=== PATIENT | female | born 1955 | race Caucasian/White ===

== ENCOUNTER 2018-04-14 14:02 | Emergency (ER) | payer OTHER, SELFPAY ==
[2018-04-14 14:07] VITALS: BP 109/67; PULSE 75; RESP 12; TEMP 36.7; O2SAT 97
--- NOTE | 2018-04-14 14:50 | ED.GENADUL ---
Disposition Clinical Impression: Rash, Atopic dermatitis Disposition: HOME Condition: Good Instructions: Acute Rash (ED) Additional Instructions: Please apply the steroid cream as directed. Please take the itching medicine as directed. If you notice that there is no improvement of your symptoms in the next 24 hours, please stop taking your terbinifine immediately. Please follow-up with her primary care provider in the next 48-72 hours. If you notice any worsening of your symptoms, or any new symptoms such as lesions in your mouth, lesions in your arms, legs or abdomen, vomiting, diarrhea, fever, chills, shortness of breath, chest pain, numbness, weakness, or fainting , please return immediately to the emergency department for reevaluation. Please follow up with your primary care provider as soon as possible for reassessment and reevaluation. As always, it was a pleasure participating in your medical care today. Prescriptions: Hydrocortisone 2.5% Cream [(None)] 30 gm TP BID #1 tube HydrOXYzine HCL [Atarax] 10 mg PO TID #30 tab Referrals: Mary Florez [Primary Care Provider] - Medical Decision Making - Medical Decision Making This is a pleasant 62-year-old female who presents with rash on the dorsum of her hands at the MCP joints bilaterally. Physical exam demonstrates signs and symptoms concerning for atopic dermatitis. No red flags or visual evidence of Ho-Ellis syndrome, bullous pemphigoid, pemphigus vulgaris, TEN, or staph scalded skin syndrome. No systemic infection component is noted with no fevers, chills and patient demonstrating normal vital signs. I feel the patient's symptoms are most likely secondary to atopic dermatitis, however the patient has been on terbinafine for a fungal infection in her toenails. This does not demonstrate the clinical signs and symptoms concerning for a systemic allergic reaction secondary to the medication however out of an abundance of precaution I have asked the patient to hold off on the to redefine if her symptoms do not improve with steroids in the next 24 hours. We discussed the importance of close follow-up with her PCP, as well as red flags which to return and the patient understands. I have extensively reviewed the treatment plan and discharge instructions with the patient. I have addressed all patient concerns at this time. The patient was made aware of what symptoms to monitor for that would warrant a return to the emergency department. Discussed the plan with the patient, they demonstrate verbal understanding and agreement with our assessment and plan at this time. 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 She presents today with complaint of rash on her hands bilaterally. She states that it started 3 days ago, it is pruritic in nature. She states that yesterday she felt itching in her hands feet never were all over her body, however today it is just primarily localized to her hands. She has been scratching at it vigorously. She did notice 2 small vesicles noted on the dorsal aspect of her right hand. She denies any bleeding, any other lesions anywhere else. There appears to be no relieving factors. She denies any history of rash like this in the past. She denies any recent contacts with outdoor plants, poison eris, or poison Parsnip. She denies any fever, chills, vomiting, diarrhea, oral lesions, difficulty swallowing, weakness, headache, vision changes, chest pain or shortness of breath. She denies a significant pertinent family history. She has no other complaints at this time. - Related Data Cyanocobalamin (Vitamin B-12) [Vitamin B-12] 1,000 mcg PO DAILY #100 tab-cap 09/18/13 Estradiol [Estrace] 1 gm VG 3x/week #42.5 gm 04/28/16 Fluocinonide 1 ml TP BID PRN #60 script 08/23/16 Triamcinolone Acetonide [TRIAMCINOLONE ACET 0.5%] 1 applic TP BID prn #60 gm 10/11/16 MetFORMIN [Glucophage] 1,000 mg PO BID #180 tab-cap 02/16/17 Amitriptyline [Elavil] 1 tab PO HS #90 tab 05/02/17 Levothyroxine [Levothroid] 150 mcg PO DAILY #30 tab-cap 05/18/17 Pen Needle, Diabetic [Pen Needle] 1 each MC weekly #25 ndl 05/18/17 Pen Needle, Diabetic [Pen Needle] 1 each MC DAILY #100 ndl 07/19/17 Meclizine [Antivert] 12.5 mg PO BID PRN #12 tab 08/10/17 Citalopram Hydrobromide [Celexa] 20 mg PO DAILY #90 tab-cap 08/28/17 Simvastatin 40 mg PO HS #90 tab-cap 08/28/17 Insulin Glargine,Hum.rec.anlog [Basaglar Kwikpen U-100] 25 unit SQ HS #10 pen 10/08/17 Exenatide Microspheres [Bydureon Pen] 2 mg SQ weekly #1 pen 12/11/17 Omeprazole 40 mg PO DAILY PRN #90 tab-cap 01/01/18 Gabapentin 300 - 600 mg PO BID #90 tab-cap 01/14/18 HydrOXYzine HCL [Atarax] 10 mg PO TID #30 tab 04/14/18 Hydrocortisone 2.5% Cream [(None)] 30 gm TP BID #1 tube 04/14/18 Allergies Allergy/AdvReac Type Severity Reaction Status Date / Time amoxicillin Allergy Intermediate Hives Unverified 04/14/18 14:20 bupropion Allergy Intermediate Skin Rash Unverified 04/14/18 14:20 ibuprofen Allergy Intermediate Skin Rash Unverified 04/14/18 14:20 hydrochlorothiazide AdvReac Mild DIZZY/DEHYD Unverified 04/14/18 14:20 [From Hyzaar] RATED lisinopril AdvReac Mild COUGH Unverified 04/14/18 14:20 losartan potassium AdvReac Mild DIZZY/DEHYD Unverified 04/14/18 14:20 [From Hyzaar] RATED sulfamethoxazole AdvReac Mild GI UPSE Unverified 04/14/18 14:20 [From Bactrim] trimethoprim [From Bactrim] AdvReac Mild GI UPSE Unverified 04/14/18 14:20 varenicline AdvReac Mild VOMITING Unverified 04/14/18 14:20 atorvastatin [From Lipitor] AdvReac Other (See Unverified 04/14/18 14:20 Comment) Review of Systems Other: 10 point review of systems was performed, pertinent positives and negatives are noted in the history of present illness. Past Medical History - Past Medical History Medical history: diabetes, hyperlipidemia, hypertension Chronic UTI, hypothyroidism, diabetic neuropathy, objective sleep apnea Surgical history: cholecystectomy, herniorraphy, other (Carpal tunnel release, oophorectomy, right kidney resection, cataract surgery) - Social History Alcohol use: none Drug use: none General Exam - Other Other exam information: 1.Const: Well-nourished, Well-developed, appearing stated age 2.Eyes: PERRL, no conjunctival injection, and symmetrical lids. 3.ENT: Atraumatic external nose and ears. Moist MM. Neck: Symmetric, trachea midline, No thyromegaly. No oral vesicles, lesions or ulcers in the mouth. 4.CVS: +S1/S2, No murmurs or gallops. Peripheral pulses 2+ and equal in all extremities. Brisk capillary refill in all extremities. 5.RESP: Unlabored respiratory effort. Clear to auscultation bilaterally. No wheezes rales or rhonchi 6.GI: Soft, Nontender/Nondistended, No hepatosplenomegaly. No guarding or rebound. 7.MSK: Normocephalic/Atraumatic, Extremities w/o deformity or ttp No cyanosis or clubbing, Normal movement of all extremities 8.Skin: Warm, Dry. Patient does demonstrate vitiligo over her hands legs shoulders back and chest. There is a very minimal amount of excoriations, over the dorsum of the patient's hands at the metacarpal phalangeal joints. 2 small clear vesicles are noted over this area on the right hand. Negative Nikolsky sign. No evidence of large bulla. Pressure on the vesicles does not lead to spreading or dehiscence of the vesicles. No signs of significant bullous pemphigoid, pemphigus vulgaris, shingles. No active drainage or bleeding. No evidence clinically suggestive of staph scalded skin syndrome, Ho-Ellis syndrome, or toxic epidermal necrolysis. 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 Sensation grossly intact, no focal neurologic deficits. 10.Psych: (AAO) x3. Appropriate mood and affect Course Vital Signs - 24 hr 04/14/18 14:07 Temperature 36.7 C Pulse 75 Respiratory 12 Rate Blood Pressure 109/67 Pulse Oximetry 97
--- NOTE | 2018-04-14 14:54 | ED.GENADUL_ITS ---
Disposition Clinical Impression: Rash, Atopic dermatitis Disposition: HOME Condition: Good Instructions: Acute Rash (ED) Additional Instructions: Please apply the steroid cream as directed. Please take the itching medicine as directed. If you notice that there is no improvement of your symptoms in the next 24 hours, please stop taking your terbinifine immediately. Please follow-up with her primary care provider in the next 48-72 hours. If you notice any worsening of your symptoms, or any new symptoms such as lesions in your mouth, lesions in your arms, legs or abdomen, vomiting, diarrhea, fever, chills, shortness of breath, chest pain, numbness, weakness, or fainting , please return immediately to the emergency department for reevaluation. Please follow up with your primary care provider as soon as possible for reassessment and reevaluation. As always, it was a pleasure participating in your medical care today. Prescriptions: Hydrocortisone 2.5% Cream [(None)] 30 gm TP BID #1 tube HydrOXYzine HCL [Atarax] 10 mg PO TID #30 tab Referrals: Mary Florez [Primary Care Provider] - Medical Decision Making - Medical Decision Making This is a pleasant 62-year-old female who presents with rash on the dorsum of her hands at the MCP joints bilaterally. Physical exam demonstrates signs and symptoms concerning for atopic dermatitis. No red flags or visual evidence of Ho-Ellis syndrome, bullous pemphigoid, pemphigus vulgaris, TEN, or staph scalded skin syndrome. No systemic infection component is noted with no fevers , chills and patient demonstrating normal vital signs. I feel the patient's symptoms are most likely secondary to atopic dermatitis, however the patient has been on terbinafine for a fungal infection in her toenails. This does not demonstrate the clinical signs and symptoms concerning for a systemic allergic reaction secondary to the medication however out of an abundance of precaution I have asked the patient to hold off on the to redefine if her symptoms do not improve with steroids in the next 24 hours. We discussed the importance of close follow-up with her PCP, as well as red flags which to return and the patient understands. I have extensively reviewed the treatment plan and discharge instructions with the patient. I have addressed all patient concerns at this time. The patient was made aware of what symptoms to monitor for that would warrant a return to the emergency department. Discussed the plan with the patient, they demonstrate verbal understanding and agreement with our assessment and plan at this time. 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 She presents today with complaint of rash on her hands bilaterally. She states that it started 3 days ago, it is pruritic in nature. She states that yesterday she felt itching in her hands feet never were all over her body, however today it is just primarily localized to her hands. She has been scratching at it vigorously. She did notice 2 small vesicles noted on the dorsal aspect of her right hand. She denies any bleeding, any other lesions anywhere else. There appears to be no relieving factors. She denies any history of rash like this in the past. She denies any recent contacts with outdoor plants, poison eris, or poison Parsnip. She denies any fever, chills, vomiting, diarrhea, oral lesions, difficulty swallowing, weakness, headache, vision changes, chest pain or shortness of breath. She denies a significant pertinent family history. She has no other complaints at this time. - Related Data Cyanocobalamin (Vitamin B-12) [Vitamin B-12] 1,000 mcg PO DAILY #100 tab-cap 05/24 Estradiol [Estrace] 1 gm VG 3x/week #42.5 gm 04/28/16 Fluocinonide 1 ml TP BID PRN #60 script 08/23/16 Triamcinolone Acetonide [TRIAMCINOLONE ACET 0.5%] 1 applic TP BID prn #60 gm 09/26 MetFORMIN [Glucophage] 1,000 mg PO BID #180 tab-cap 02/16/17 Amitriptyline [Elavil] 1 tab PO HS #90 tab 05/02/17 Levothyroxine [Levothroid] 150 mcg PO DAILY #30 tab-cap 05/18/17 Pen Needle, Diabetic [Pen Needle] 1 each MC weekly #25 ndl 05/18/17 Pen Needle, Diabetic [Pen Needle] 1 each MC DAILY #100 ndl 07/19/17 Meclizine [Antivert] 12.5 mg PO BID PRN #12 tab 08/10/17 Citalopram Hydrobromide [Celexa] 20 mg PO DAILY #90 tab-cap 08/28/17 Simvastatin 40 mg PO HS #90 tab-cap 08/28/17 Insulin Glargine,Hum.rec.anlog [Basaglar Kwikpen U-100] 25 unit SQ HS #10 pen Exenatide Microspheres [Bydureon Pen] 2 mg SQ weekly #1 pen 12/11/17 Omeprazole 40 mg PO DAILY PRN #90 tab-cap 01/01/18 Gabapentin 300 - 600 mg PO BID #90 tab-cap 01/14/18 HydrOXYzine HCL [Atarax] 10 mg PO TID #30 tab 04/14/18 Hydrocortisone 2.5% Cream [(None)] 30 gm TP BID #1 tube 04/14/18 Allergies Allergy/AdvReac Type Severity Reaction Status Date / Time amoxicillin Allergy Intermediate Hives Unverified 04/14/18 14:20 bupropion Allergy Intermediate Skin Rash Unverified 04/14/18 14:20 ibuprofen Allergy Intermediate Skin Rash Unverified 04/14/18 14:20 hydrochlorothiazide AdvReac Mild DIZZY/DEHYD Unverified 04/14/18 14:20 [From Hyzaar] RATED lisinopril AdvReac Mild COUGH Unverified 04/14/18 14:20 losartan potassium AdvReac Mild DIZZY/DEHYD Unverified 04/14/18 14:20 [From Hyzaar] RATED sulfamethoxazole AdvReac Mild GI UPSE Unverified 04/14/18 14:20 [From Bactrim] trimethoprim [From Bactrim] AdvReac Mild GI UPSE Unverified 04/14/18 14:20 varenicline AdvReac Mild VOMITING Unverified 04/14/18 14:20 atorvastatin [From Lipitor] AdvReac Other (See Unverified 04/14/18 14:20 Comment) Review of Systems Other: 10 point review of systems was performed, pertinent positives and negatives are noted in the history of present illness. Past Medical History - Past Medical History Medical history: diabetes, hyperlipidemia, hypertension Chronic UTI, hypothyroidism, diabetic neuropathy, objective sleep apnea Surgical history: cholecystectomy, herniorraphy, other (Carpal tunnel release, oophorectomy, right kidney resection, cataract surgery) - Social History Alcohol use: none Drug use: none General Exam - Other Other exam information: 1.Const: Well-nourished, Well-developed, appearing stated age 2.Eyes: PERRL, no conjunctival injection, and symmetrical lids. 3.ENT: Atraumatic external nose and ears. Moist MM. Neck: Symmetric, trachea midline, No thyromegaly. No oral vesicles, lesions or ulcers in the mouth. 4.CVS: +S1/S2, No murmurs or gallops. Peripheral pulses 2+ and equal in all extremities. Brisk capillary refill in all extremities. 5.RESP: Unlabored respiratory effort. Clear to auscultation bilaterally. No wheezes rales or rhonchi 6.GI: Soft, Nontender/Nondistended, No hepatosplenomegaly. No guarding or rebound. 7.MSK: Normocephalic/Atraumatic, Extremities w/o deformity or ttp No cyanosis or clubbing, Normal movement of all extremities 8.Skin: Warm, Dry. Patient does demonstrate vitiligo over her hands legs shoulders back and chest. There is a very minimal amount of excoriations, over the dorsum of the patient's hands at the metacarpal phalangeal joints. 2 small clear vesicles are noted over this area on the right hand. Negative Nikolsky sign. No evidence of large bulla. Pressure on the vesicles does not lead to spreading or dehiscence of the vesicles. No signs of significant bullous pemphigoid, pemphigus vulgaris, shingles. No active drainage or bleeding. No evidence clinically suggestive of staph scalded skin syndrome, Ho-Ellis syndrome, or toxic epidermal necrolysis. 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 Sensation grossly intact, no focal neurologic deficits. 10.Psych: (AAO) x3. Appropriate mood and affect Course Vital Signs - 24 hr 04/14/18 14:07 Temperature 36.7 C Pulse 75 Respiratory 12 Rate Blood Pressure 109/67 Pulse Oximetry 97
== END 2018-04-14 14:59 | disposition home or self-care (01) ==
PROVIDERS: Emergency Provider Student in an Organized Health Care Education/Training Program; PCP Family Medicine
DX: R21 Rash and other nonspecific skin eruption (principal); L20.9 Atopic dermatitis, unspecified; E11.9 Type 2 diabetes mellitus without complications; Z79.4 Long term (current) use of insulin; I10 Essential (primary) hypertension
CPT/HCPCS: 99283

== ENCOUNTER 2018-04-19 16:27 | Emergency (ER) | payer OTHER, SELFPAY ==
[2018-04-19 16:31] VITALS: BP 124/63; PULSE 76; RESP 20; TEMP 36.4; O2SAT 98
--- NOTE | 2018-04-19 16:38 | ED.GENADUL ---
Disposition Clinical Impression: Allergic reaction, Facial rash Disposition: HOME Condition: Improving Instructions: Acute Rash (ED), General Allergic Reaction (ED) Additional Instructions: Drink plenty of fluids and get plenty of rest. Take Benadryl as needed and directed for any itching. Stop taking the terbinafine. Take the steroids until finished. Follow-up with your primary care doctor within the next week. Return to the emergency department with any worsening or new concerning symptoms. Prescriptions: Prednisone 20 mg PO DIRECTED #12 tablet Medical Decision Making - Medical Decision Making 62-year-old female who presents with pruritic facial rash since 9:00 this morning. Was seen here earlier this week and diagnosed with atopic dermatitis of her hands which has completely resolved with hydroxyzine and hydrocortisone. It was discussed at that time that her symptoms in her hands might be due to her terbinafine which she is taking for a toenail infection. She was instructed to stop her terbinafine if her symptoms did not resolve after 3 days but she forgot to stop it as her symptoms improved. She admits to a funny feeling in her throat and shortness of breath, however she was able to ambulate back to the emergency department in no acute distress, she speaking in full sentences, and her airway is intact. No wheezing on lung exam and oxygen saturation within normal limits. Patient denies any new medications, travel or new exposures. The facial rash is mild with very minimal erythema and edema, mainly noted infraorbital bilaterally. Will place an IV, bolus IV fluids, Solu-Medrol, Pepcid and Benadryl. 1900 --patient observed for over 2 hours and feels much better. Facial rash much improved. She states she feels good would like to go home. She was able to drink here in the ED and swallow without difficulty. Denies any abnormal sensation in her throat or difficulty breathing. We will send him with a prescription for prednisone. Patient was instructed to stop her terbinafine. She states it was not helping much anyway. Instructed to drink plenty fluids and to return here with any worsening symptoms. History of Present Illness - General Chief complaint: Allergic Stated complaint: SOB/HIVES Time Seen by Provider: 04/19/18 16:29 Source: patient Mode of arrival: ambulatory Limitations: no limitations - History of Present Illness Initial comments: Patient is a 62-year-old female presents with facial rash since 9:00 this morning. Patient states the rash is itchy has gotten progressively worse the day has gone on. She was seen here last week for rash in her hands diagnosed with atopic dermatitis and prescribed hydroxyzine hydrocortisone and states her rash is completely resolved. She had been taking terbinafine fine at that time for a toenail fungal infection and was advised that if her rash did not improve over 3 days, to stop the terbinafine. She states she forgot to stop it. She does admit to a funny feeling in her throat and shortness of breath. - Related Data Cyanocobalamin (Vitamin B-12) [Vitamin B-12] 1,000 mcg PO DAILY #100 tab-cap 09/18/13 Estradiol [Estrace] 1 gm VG 3x/week #42.5 gm 04/28/16 Fluocinonide 1 ml TP BID PRN #60 script 08/23/16 Triamcinolone Acetonide [TRIAMCINOLONE ACET 0.5%] 1 applic TP BID prn #60 gm 10/11/16 MetFORMIN [Glucophage] 1,000 mg PO BID #180 tab-cap 02/16/17 Amitriptyline [Elavil] 1 tab PO HS #90 tab 05/02/17 Levothyroxine [Levothroid] 150 mcg PO DAILY #30 tab-cap 05/18/17 Pen Needle, Diabetic [Pen Needle] 1 each MC weekly #25 ndl 05/18/17 Pen Needle, Diabetic [Pen Needle] 1 each MC DAILY #100 ndl 07/19/17 Meclizine [Antivert] 12.5 mg PO BID PRN #12 tab 08/10/17 Citalopram Hydrobromide [Celexa] 20 mg PO DAILY #90 tab-cap 08/28/17 Simvastatin 40 mg PO HS #90 tab-cap 08/28/17 Insulin Glargine,Hum.rec.anlog [Basaglar Kwikpen U-100] 25 unit SQ HS #10 pen 10/08/17 Exenatide Microspheres [Bydureon Pen] 2 mg SQ weekly #1 pen 12/11/17 Omeprazole 40 mg PO DAILY PRN #90 tab-cap 01/01/18 Gabapentin 300 - 600 mg PO BID #90 tab-cap 01/14/18 HydrOXYzine HCL [Atarax] 10 mg PO TID #30 tab 04/14/18 Hydrocortisone 2.5% Cream 30 gm TP BID #1 tube 04/14/18 Prednisone 20 mg PO DIRECTED #12 tablet 04/19/18 Allergies Allergy/AdvReac Type Severity Reaction Status Date / Time amoxicillin Allergy Intermediate Hives Unverified 04/14/18 14:20 bupropion Allergy Intermediate Skin Rash Unverified 04/14/18 14:20 ibuprofen Allergy Intermediate Skin Rash Unverified 04/14/18 14:20 hydrochlorothiazide AdvReac Mild DIZZY/DEHYD Unverified 04/14/18 14:20 [From Hyzaar] RATED lisinopril AdvReac Mild COUGH Unverified 04/14/18 14:20 losartan potassium AdvReac Mild DIZZY/DEHYD Unverified 04/14/18 14:20 [From Hyzaar] RATED sulfamethoxazole AdvReac Mild GI UPSE Unverified 04/14/18 14:20 [From Bactrim] trimethoprim [From Bactrim] AdvReac Mild GI UPSE Unverified 04/14/18 14:20 varenicline AdvReac Mild VOMITING Unverified 04/14/18 14:20 atorvastatin [From Lipitor] AdvReac Other (See Unverified 04/14/18 14:20 Comment) Review of Systems Constitutional: denies: chills, fever Eyes: denies: eye pain ENT: denies: ear pain, dental pain Respiratory: denies: cough, shortness of breath Cardiovascular: denies: chest pain, dyspnea on exertion Gastrointestinal: denies: abdominal pain, nausea, vomiting Genitourinary: denies: urgency, dysuria, frequency Musculoskeletal: denies: back pain Skin: denies: rash, lesions Neurological: denies: headache, weakness, numbness Past Medical History - Past Medical History Medical history: diabetes, hyperlipidemia, hypertension Chronic UTI, hypothyroidism, diabetic neuropathy, objective sleep apnea Surgical history: cholecystectomy, herniorraphy, other (Carpal tunnel release, oophorectomy, right kidney resection, cataract surgery) - Social History Smoking status: never smoker Alcohol use: none Drug use: none General Exam - General Limitations: no limitations General appearance: alert, in no apparent distress - Eye Eye exam: Present: EOMI - ENT ENT exam: Present: normal orophraynx, mucous membranes moist, TM's normal bilaterally - Neck Neck exam: Present: normal inspection - Respiratory Respiratory exam: Present: normal lung sounds bilaterally. Absent: respiratory distress, wheezes, rales, rhonchi, stridor - Cardiovascular Cardiovascular Exam: Present: regular rate, normal rhythm. Absent: bradycardia, tachycardia - GI/Abdominal GI/Abdominal exam: Present: soft, normal bowel sounds. Absent: distended, tenderness, guarding, rebound, rigid - Neurological Exam Neurological exam: Present: alert, oriented X3 - Psychiatric Psychiatric exam: Present: normal affect - Skin Skin exam: Present: other (Very minimal facial erythema, edema noted to bilateral infraorbital region, and facial cheeks. No abscess, induration, fluctuance, abrasions or papules noted.) Course Vital Signs - 24 hr 04/19/18 16:31 Temperature 97.5 F L Pulse 76 Respiratory 20 Rate Blood Pressure 124/63 Pulse Oximetry 98
[2018-04-19] MEDS: diphenhydrAMINE 50 MG/ML VIAL IVP (16:45)
[2018-04-19] MEDS: methylPREDNISolone SUCC 125 MG VIAL IVP (16:46)
[2018-04-19] MEDS: FAMOTIDINE 20 MG/50 ML BAG 100 MG IVPB (16:47)
[2018-04-19] MEDS: Normal Saline 1,000 ML 1000 ML IV (17:03)
[2018-04-19 18:47] VITALS: PULSE 71; RESP 16; O2SAT 95
[2018-04-19 18:50] VITALS: PULSE 70; RESP 16; O2SAT 95
[2018-04-19 19:10] VITALS: BP 129/82; RESP 18; O2SAT 100
--- NOTE | 2018-04-19 19:59 | NUR.NOTE ---
Nursing Note: 1910: Pt has been able to eat and drink with ease feeling her throat is now clear. Skin pink/warm/dry.
== END 2018-04-19 19:27 | disposition home or self-care (01) ==
PROVIDERS: Emergency Provider Physician Assistant; PCP Family Medicine
DX: R21 Rash and other nonspecific skin eruption (principal); R06.02 Shortness of breath; R60.0 Localized edema; T36.7X5A Adverse effect of antifungal antibiotics, systemically used, initial encounter; E11.9 Type 2 diabetes mellitus without complications; Z79.4 Long term (current) use of insulin; I10 Essential (primary) hypertension
CPT/HCPCS: 96361; 96365; 96375; 99284; J1200; J2930

== ENCOUNTER 2018-06-04 12:02 | Outpatient (CLI) | payer OTHER, SELFPAY ==
[2018-06-04 16:41] LABS: Bilirubin Small (Negative); Blood Negative (Negative); Clarity Clear; Glucose Negative (Negative); Ketones 15 mg/dL (Negative); Leukocyte Esterase Negative (Negative); Nitrite Negative (Negative); Specific Gravity >= 1.030 (1.005-1.025); Urobilinogen 0.2 EU/dL (Up TO 0.2)
== END 2018-06-04 12:22 ==
PROVIDERS: PCP Family Medicine; Visit Provider Family Medicine
DX: R30.0 Dysuria (principal)
CPT/HCPCS: 81003

== ENCOUNTER 2018-06-10 09:00 | Day surgery (SDC) | payer OTHER, SELFPAY ==
--- NOTE | 2018-06-10 07:07 | W.COLOREPORT ---
Date of service: 06/10/18 Colonoscopy Report Date of procedure: 06/10/18 Pre-op diagnosis general: Hx of polyps Post-op diagnosis procedure note: other (Mild Diverticulosis) Procedure: Colonoscopy Surgeon: Letitia Marquez Anesthesia proc note operative: MAC (Shailesh Brizuela CRNA) Estimated blood loss (mL): 0 Pathology: none sent Complications: None Disposition: same day Indications: Mrs. Driver is here today for a colonoscopy. She has a history of polyps. Risks, benefits and complications have been reviewed with her and she wishes to proceed. No guarantees were given or implied. Prep: Miralax/Dulcolax Procedure Start Time: 10:41 Procedure End Time: 11:18 Retraction Time: 21 minutes Findings: Mild Sigmoid Diverticulosis Procedure Description: After informed consent was obtained the patient was taken to the procedure room and placed in a left decubitous position. Monitors were applied and a time out was done. The patients name, date of , procedure, allergies to medications and metal in their body was reviewed. The patient was then sedated. Once sedated and comfortable a rectal exam was done. External exam was normal. Internal exam revealed a normal sphincter tone and no palpable masses. The scope was then introduced and retrofelexed. No internal hemorrhoids were identified. The scope was then advanced to the cecum without difficulty. The TI and appendiceal orifice were identified. The prep was adequate. The scope was then slowly retracted over 21 minutes back into the rectum. No polyps were identified this time. There was mild diverticulosis of the sigmoid colon. The scope was removed and the patient was woken up and taken back to Same day surgery in stable condition. The patient tolerated the procedure well and there were no immediate complications. Follow up: The patient should follow up in 5 years due to her past history of polyps, unless they develop changes in bowel habits or other new gastrointestinal complaints.
--- NOTE | 2018-06-10 07:10 | PDOC.DSDIS_ITS ---
Discharge Plan Disposition Patient Disposition: HOME Condition: Good Discharge Details Reason For Visit: Colonoscopy Attending Provider: Letitia Marquez Primary Care Provider: Mary Florez Home Meds and New Rx's Prescriptions: Continue cyanocobalamin (vitamin B-12) [Vitamin B-12] 1,000 MCG tablet 1,000 mcg PO DAILY Qty: 100 RF: 4 estradiol [Estrace] 42.5 GM cream 1 gm VG 3x/week Qty: 42.5 RF: 2 fluocinonide 60 ML solution 1 ml Topical BID PRNQty: 60 RF: 2 triamcinolone acetonide 15 GM ointment 1 applic Topical BID prn Qty: 60 RF: 5 metformin [Glucophage] 1,000 MG tablet 1,000 mg PO BID Qty: 180 RF: 4 amitriptyline 10 MG tablet 1 tab PO HS Qty: 90 RF: 3 levothyroxine 150 MCG tablet 150 mcg PO DAILY Qty: 30 RF: 11 pen needle, diabetic 1 EACH needle 1 ea Miscellaneous weekly Qty: 25 RF: 2 pen needle, diabetic 1 EACH needle 1 ea Miscellaneous DAILY Qty: 100 RF: 5 simvastatin 40 MG tablet 40 mg PO HS Qty: 90 RF: 4 citalopram [Celexa] 20 MG tablet 20 mg PO DAILY Qty: 90 RF: 4 insulin glargine [Basaglar KwikPen U-100 Insulin] 100 UNIT/1 ML insulin pen 25 unit SQ HS Qty: 10 RF: 5 exenatide microspheres [Bydureon] 2 MG/0.65 ML pen injector 2 mg SQ weekly Qty: 1 RF: 11 omeprazole 40 MG capsule,delayed release(DR/EC) 40 mg PO DAILY PRNQty: 90 RF: 3 gabapentin 300 MG capsule 300 - 600 mg PO BID Qty: 90 RF: 5 meclizine [Antivert] 12.5 MG tablet 12.5 mg PO BID PRN (Reason: Dizziness) Qty: 12 RF: 0 hydrocortisone 30 GM cream 30 gm Topical BID Qty: 1 RF: 0 Discharge Instructions Instructions: Colonoscopy (DC), Diverticulosis (DC) Additional Instructions: Findings: Mild Diverticulosis of the sigmoid colon Follow up: 5 years for next colonoscopy New medications: none Please call if you develop: fevers >101.5 Nausea or Vomiting Abdominal pain that is not transient 1. Because there will be medication in your system for the next 24 hours, you may feel a little sleepy. Your coordination will be affected. Therefore: a. Do not drive or operate dangerous equipment for 24 hours. b. Do not drink alcohol beverages for 24 hours (not even beer). c. Plan to go home and rest for the day. 2. Generally there are no restrictions on your activity after a day or so has gone by, but you may feel a bit fatigued for a few days. 3 After you arrive home you may have a light meal and return to a normal diet as you can tolerate it without feeling sick to your stomach. 4. After surgery, you may feel pain or discomfort. This should be only transient , but if it persists please contact your doctor. 5. If there are any questions regarding the findings of your procedure, please feel free to contact your doctor. 6. If you are unable to contact your doctor with a problem, contact the hospital at [phone]. 7. Continue all your regular medications unless directed otherwise. I understand the above instructions and have no questions. Signature of Patient or Responsible Adult Escort Date/Time Name of Responsible Adult Escort Signature of Nurse Date/Time Activity:: Activity as Tolerated Diet:: High Fiber diet Discharge Orders Discharge Orders: Discharge Order (Routine); Ordered 06/10/18 Ordered By: Letitia Marquez
[2018-06-10 09:13] VITALS: BP 124/65; PULSE 88; RESP 16; TEMP 35.5; O2SAT 97
[2018-06-10] MEDS: Lactated Ringers 1,000 ML 80 ML IV (10:06)
[2018-06-10 11:49] VITALS: BP 113/61; PULSE 66; RESP 18; TEMP 36.3; O2SAT 95
== END 2018-06-10 12:20 | disposition home or self-care (01) ==
LOC: SUR 09:01
PROVIDERS: PCP Family Medicine; Visit Provider Surgery
PROC: 0DJD8ZZ Inspection of Lower Intestinal Tract, Via Natural or Artificial Opening Endoscopic (ICD-10-PCS; CPT 45378; principal; 2018-06-10 10:45)
DX: Z12.11 Encounter for screening for malignant neoplasm of colon (principal); Z86.010 Personal history of colon polyps; K57.30 Diverticulosis of large intestine without perforation or abscess without bleeding; J44.9 Chronic obstructive pulmonary disease, unspecified; I10 Essential (primary) hypertension
CPT/HCPCS: 45378

== ENCOUNTER 2018-06-12 13:39 | Outpatient (CLI) | payer OTHER, SELFPAY ==
--- NOTE | 2018-06-12 13:36 | DI.RAD_ITS ---
SYMPTOMS/DIAGNOSIS: KNEE PAIN LEFT KNEE: Three views. Comparison 08/27/15. The bones appear osteopenic. Periarticular spurring is seen involving all three joint compartments. There is marked narrowing of the patellofemoral joint with flattening of the articular surfaces and subchondral sclerosis. No acute fracture or dislocation is seen. There is a small suprapatellar joint effusion. Arterial calcifications are present. IMPRESSION: Moderate osteoarthritis of the knee particularly the patellofemoral joint.
== END 2018-06-12 13:59 ==
PROVIDERS: PCP Family Medicine; Visit Provider Student in an Organized Health Care Education/Training Program
DX: M25.562 Pain in left knee (principal); M85.88 Other specified disorders of bone density and structure, other site; M17.12 Unilateral primary osteoarthritis, left knee
CPT/HCPCS: 73562

== ENCOUNTER 2018-06-12 15:52 | Outpatient (REF) | payer OTHER, SELFPAY ==
[2018-06-12 18:31] LABS: Mononuclear Cells 78 % (0-0); Other Cells 0 0 (0-0)
[2018-06-12 18:36] LABS: Polynuclear Cells 22 % (0-0)
== END 2018-06-12 16:12 ==
LOC: LBN 15:52
PROVIDERS: PCP Family Medicine; Visit Provider Student in an Organized Health Care Education/Training Program
DX: M25.462 Effusion, left knee (principal)
CPT/HCPCS: 87077; 89051; 87070; 87205; 89060

== ENCOUNTER 2018-06-26 02:15 | Outpatient (CLI) | payer OTHER, SELFPAY ==
[2018-06-26 16:22] LABS: HCT 33.9 % (36.0-46.0); HGB 11.4 g/dL (12.0-15.5); Mean Corp. HGB Concentration 33.6 g/dL (32.0-36.0); Mean Corpuscular Hemoglobin 30.2 pg (27.0-33.0); Mean Corpuscular Volume 89.7 fL (80-95); Mean Platelet Volume 9.4 fL (8.0-11.0); Platelet Count 237 x1000/uL (130-400); RBC 3.78 m/cumm (4.00-5.20); RBC Distribution Width 13.6 % (11.7-14.6); White Blood Cell Count 10.88 k/cumm (4.4-10.8)
[2018-06-26 17:35] LABS: C-Reactive Protein 0.37 mg/dL (0.0-0.3)
== END 2018-06-26 02:35 ==
PROVIDERS: Student in an Organized Health Care Education/Training Program; PCP Family Medicine; Visit Provider Family Medicine
DX: M25.562 Pain in left knee (principal)
CPT/HCPCS: 36415; 85027; 86140

== ENCOUNTER 2018-07-01 11:47 | Outpatient (REF) | payer OTHER, SELFPAY ==
[2018-07-01 14:15] LABS: Source L KNEE
[2018-07-01 14:16] LABS: Clarity CLOUDY
[2018-07-12 11:21] LABS: Nucleated Cells 1344 /MM3 (0-0)
[2018-07-12 11:22] LABS: Polynuclear Cells 54 % (0-0)
[2018-07-12 11:23] LABS: Mononuclear Cells 46 % (0-0)
== END 2018-07-01 12:07 ==
LOC: LBN 11:47
PROVIDERS: PCP Family Medicine; Visit Provider Student in an Organized Health Care Education/Training Program
DX: M25.462 Effusion, left knee (principal)
CPT/HCPCS: 87070; 87205; 89051

== ENCOUNTER 2018-07-15 00:48 | Outpatient (CLI) | payer OTHER, SELFPAY ==
--- NOTE | 2018-07-15 09:36 | DI.MRI_ITS ---
SYMPTOM/DIAGNOSIS: RECURRENT EFFUSION AND PAIN LEFT KNEE MRI: Routine noncontrast examination was performed. The anterior cruciate and posterior cruciate ligaments are intact as are the medial and lateral collateral ligaments, extensor mechanism and medial and lateral retinaculum in addition to the popliteus tendon. There is no evidence of a meniscal tear. At the patellofemoral joint, there is loss of the articular cartilage. There is joint space narrowing and subchondral edema present. Osteophytes are seen in the posterior patella. In the femoral tibial joints, there is mild narrowing of the articular cartilage in the medial aspect. Osteophytes are seen arising from both the medial and lateral joint space. There is a moderate sized joint effusion. No evidence of a popliteal cyst is seen. The muscles show normal signal and size. No abnormal focal fluid collection is appreciated. There is T 2 hyperintense signal seen in the posterior proximal metaphyseal region of the tibia. This finding is nonspecific. There does not appear to be disruption of the cortex or an associated soft tissue mass. There is also mild edema seen in the subchondral region of the patellofemoral joint which may be degenerative in nature. IMPRESSION: 1. No evidence of a meniscal or ligament tear. 2. Marked degenerative changes seen in the knee, particularly involving the patellofemoral joint. 3. Nonspecific abnormal signal seen in the proximal tibial metaphysis. The finding is nonspecific but appears benign. No associated soft tissue mass or cortical disruption is seen.
== END 2018-07-15 01:08 ==
PROVIDERS: PCP Family Medicine; Visit Provider Student in an Organized Health Care Education/Training Program
DX: M25.562 Pain in left knee (principal); M25.462 Effusion, left knee; M17.12 Unilateral primary osteoarthritis, left knee
CPT/HCPCS: 73721

== ENCOUNTER 2018-09-24 11:32 | Outpatient (CLI) | payer OTHER, SELFPAY ==
[2018-09-24 17:08] LABS: Cholesterol 264 mg/dL (50-200); HDL Cholesterol 47 mg/dL (40-60); LDL CHOLESTEROL 178 mg/dL (<100); Triglyceride 239 mg/dL (30-150)
[2018-09-24 18:31] LABS: TSH 7.87 uIU/mL (0.358-3.74)
== END 2018-09-24 11:52 ==
LOC: LBO 11:34 → NCHCO 11:36
PROVIDERS: PCP Family Medicine; Visit Provider Family Medicine
DX: E78.5 Hyperlipidemia, unspecified (principal); E03.9 Hypothyroidism, unspecified; R30.0 Dysuria
CPT/HCPCS: 36415; 80061; 83721; 81003; 84443

== ENCOUNTER 2018-10-25 09:38 | Emergency (ER) | payer OTHER, SELFPAY ==
[2018-10-25 09:40] VITALS: BP 141/66; PULSE 91; RESP 18; TEMP 36.3; O2SAT 100
[2018-10-25 10:01] LABS: Bilirubin Moderate (Negative); Blood Negative (Negative); Glucose Negative (Negative); Ketones 15 mg/dL (Negative); Leukocyte Esterase Moderate (Negative); Nitrite Positive (Negative); Specific Gravity >= 1.030 (1.005-1.025); pH 5.5 (5-8)
[2018-10-25 10:02] LABS: Clarity Cloudy
[2018-10-25] MEDS: Lidocaine 5% Patch 1 PATCH TP (10:05)
--- NOTE | 2018-10-25 10:09 | ED.GENADUL_ITS ---
Discharge Plan Disposition Patient Disposition: HOME Condition: Good Discharge Details Chief Complaint: Urinary Clinical Impression: UTI (urinary tract infection) Primary Care Provider: Mary Florez ED Provider: Vivek Cuevas Home Meds and New Rx's Prescriptions: New cephalexin [Keflex] 500 mg capsule 500 mg PO QID 7 Days Qty: 28 RF: 0 No Action cyanocobalamin (vitamin B-12) [Vitamin B-12] 1,000 MCG tablet 1,000 mcg PO DAILY Qty: 100 RF: 4 estradiol [Estrace] 42.5 GM cream 1 gm VG 3x/week Qty: 42.5 RF: 2 fluocinonide 60 ML solution 1 ml Topical BID PRNQty: 60 RF: 2 triamcinolone acetonide 15 GM ointment 1 applic Topical BID prn Qty: 60 RF: 5 metformin [Glucophage] 1,000 MG tablet 1,000 mg PO BID Qty: 180 RF: 4 amitriptyline 10 MG tablet 1 tab PO HS Qty: 90 RF: 3 levothyroxine 150 MCG tablet 150 mcg PO DAILY Qty: 30 RF: 11 pen needle, diabetic 1 EACH needle 1 ea Miscellaneous weekly Qty: 25 RF: 2 pen needle, diabetic 1 EACH needle 1 ea Miscellaneous DAILY Qty: 100 RF: 5 simvastatin 40 MG tablet 40 mg PO HS Qty: 90 RF: 4 citalopram [Celexa] 20 MG tablet 20 mg PO DAILY Qty: 90 RF: 4 insulin glargine [Basaglar KwikPen U-100 Insulin] 100 UNIT/1 ML insulin pen 25 unit SQ HS Qty: 10 RF: 5 exenatide microspheres [Bydureon] 2 MG/0.65 ML pen injector 2 mg SQ weekly Qty: 1 RF: 11 omeprazole 40 MG capsule,delayed release(DR/EC) 40 mg PO DAILY PRNQty: 90 RF: 3 gabapentin 300 MG capsule 300 - 600 mg PO BID Qty: 90 RF: 5 meclizine [Antivert] 12.5 MG tablet 12.5 mg PO BID PRN (Reason: Dizziness) Qty: 12 RF: 0 hydrocortisone 30 GM cream 30 gm Topical BID Qty: 1 RF: 0 Discharge Instructions Instructions: Urinary Tract Infection in Women (ED) Additional Instructions: Please take medication as directed. If you notice any hives, or allergic reaction please stop taking it immediately, take 25 mg of Benadryl and return immediately to the emergency department. If you notice any worsening of your symptoms, or any new symptoms such as vomiting, diarrhea, fever, chills, shortness of breath, chest pain, numbness, weakness, or fainting , please return immediately to the emergency department for reevaluation. Please follow up with your primary care provider as soon as possible for reassessment and reevaluation. As always, it was a pleasure participating in your medical care today. Referrals: Mary Florez [Primary Care Provider] - Medical Decision Making This is a very pleasant 62-year-old female who presents for evaluation of mild lower back pain, worse on the left than the right, with mild urinary incontinence. She denies any hematuria, or other red flags of fever, fall, trauma, saddle anesthesia, numbness tingling or weakness. There is no abdominal tenderness, vital signs are stable and reassuring. Urinalysis is nitrate positive, with present leuk esterase. Signs and symptoms are clinically consistent with urinary tract infection. They are inconsistent with pyelonephritis with no fever, chills, CVA tenderness, tachycardia, or other abnormalities. The patient's most recent culture was from 2014 which showed pansensitive E. coli. Patient has multiple allergies, including an intolerance to Bactrim, and history of very mild hives to amoxicillin. However because of her single kidney, and her age I do not feel that she would be a good or appropriate candidate for floor quinolone or nitrofurantoin with concern for low creatinine levels. I did discuss the risk and benefits of doing a trial of Keflex, and through shared decision making process after weighing the risks and benefits we will give a prescription for Keflex. However will give the first dose here and observe the patient for 30 minutes to make sure there is no adverse reaction. I feel that the literature clearly defines that the likelihood of a severe reaction or interaction is extremely low in the setting of an already mild penicillin allergy. Regardless I do feel that an observation period is prudent. 11 AM A prolonged observation. Was made, and after this the patient was reassessed, she had no reaction, no adverse complaint, no signs of anaphylaxis or hives. I feel that the patient be safely discharged home. The patient is asking to go home. She will be discharged home with close follow-up. We discussed red flags which to return the patient understands. I have extensively reviewed the treatment plan and discharge instructions with the patient. I have addressed all patient concerns at this time. The patient was made aware of what symptoms to monitor for that would warrant a return to the emergency department. Discussed the plan with the patient, they demonstrate verbal understanding and agreement with our assessment and plan at this time. HPI General Date/Time Provider Initiated Documentation: 10/25/18 09:46 . HPI Narrative: This is a 62-year-old female with a past medical history of diabetes, left nephrectomy, struct of sleep apnea, chronic left-sided low back pain, COPD, who presents today for evaluation of mild bilateral low back pain, slightly worse on the left than the right, which is been present for the last 3 weeks. She describes it as mild achy sensation. She denies any sciatic-like symptoms, any numbness or tingling in her groin or lower extremities. She denies any weakness of her lower extremities. She does admit to increased urinary incontinence but denies any hematuria, dysuria, fever, chills, nausea, vomiting, diarrhea, hematochezia, melena, acholic stool. She states that the symptoms f eel slightly atypical than her normal UTIs is normally she will have blood in her urine. She denies any red flags of recent trauma, recent falls, chest pain or shortness of breath. Of note the patient does state that she was chronically on an antibiotic for her mild urinary incontinence as prescribed by Dr. Walker, however she stopped this 6 months ago she is not seen Dr. Walker for quite some time and her PCP did not want to continue the medication/antibiotic for the time being. Patient does not recall what the antibiotic was. Patient has no other complaints at this time. The patient has taken Aleve and has used a heating pad and has had no significant improvement of her symptomatology. Related Data Home Medications Medication Instructions Recorded Confirmed cyanocobalamin (vitamin B-12) 1,000 mcg PO DAILY #100 tab-cap 09/18/13 07/01/18 [Vitamin B-12] estradiol [Estrace] 1 gm VG 3x/week #42.5 gm 04/28/16 07/01/18 fluocinonide 1 ml TOPICAL BID PRN #60 script 08/23/16 07/01/18 triamcinolone acetonide 1 applic TOPICAL BID prn #60 gm 10/11/16 07/01/18 metformin [Glucophage] 1,000 mg PO BID #180 tab-cap 02/16/17 07/01/18 amitriptyline 1 tab PO HS #90 tab 05/02/17 07/01/18 levothyroxine 150 mcg PO DAILY #30 tab-cap 05/18/17 07/01/18 pen needle, diabetic #25 ndl 05/18/17 07/01/18 pen needle, diabetic #100 ndl 07/19/17 07/01/18 meclizine [Antivert] 12.5 mg PO BID PRN #12 tab 08/10/17 07/01/18 citalopram [Celexa] 20 mg PO DAILY #90 tab-cap 08/28/17 07/01/18 simvastatin 40 mg PO HS #90 tab-cap 08/28/17 07/01/18 insulin glargine [Basaglar KwikPen 25 unit SQ HS #10 pen 10/08/17 07/01/18 U-100 Insulin] exenatide microspheres [Bydureon] 2 mg SQ weekly #1 pen 12/11/17 07/01/18 omeprazole 40 mg PO DAILY PRN #90 tab-cap 01/01/18 07/01/18 gabapentin 300 - 600 mg PO BID #90 tab-cap 01/14/18 07/01/18 hydrocortisone 30 gm TOPICAL BID #1 tube 04/14/18 07/01/18 cephalexin [Keflex] 500 mg PO QID 7 Days #28 cap 10/25/18 Previous Rx's Medication Instructions Recorded pen needle, diabetic #100 ndl 07/19/17 meclizine [Antivert] 12.5 mg PO BID PRN #12 tab 08/10/17 citalopram [Celexa] 20 mg PO DAILY #90 tab-cap 08/28/17 simvastatin 40 mg PO HS #90 tab-cap 08/28/17 insulin glargine [Basaglar KwikPen 25 unit SQ HS #10 pen 10/08/17 U-100 Insulin] exenatide microspheres [Bydureon] 2 mg SQ weekly #1 pen 12/11/17 gabapentin 300 - 600 mg PO BID #90 tab-cap 01/14/18 hydrocortisone 30 gm TOPICAL BID #1 tube 04/14/18 cephalexin [Keflex] 500 mg PO QID 7 Days #28 cap 10/25/18 Allergies Allergy/AdvReac Type Severity Reaction Status Date / Time amoxicillin Allergy Intermediate Hives Verified 10/25/18 09:45 bupropion Allergy Intermediate Skin Rash Verified 10/25/18 09:45 ibuprofen Allergy Intermediate Skin Rash Verified 10/25/18 09:45 hydrochlorothiazide AdvReac Mild DIZZY/DEHYD Verified 10/25/18 09:45 [From Hyzaar] RATED lisinopril AdvReac Mild COUGH Verified 10/25/18 09:45 losartan potassium AdvReac Mild DIZZY/DEHYD Verified 10/25/18 09:45 [From Hyzaar] RATED sulfamethoxazole AdvReac Mild GI UPSE Verified 10/25/18 09:45 [From Bactrim] trimethoprim [From Bactrim] AdvReac Mild GI UPSE Verified 10/25/18 09:45 varenicline AdvReac Mild VOMITING Verified 10/25/18 09:45 atorvastatin [From Lipitor] AdvReac Other (See Verified 10/25/18 09:45 Comment) General Stated Complaint: Urinary KARLO: 4 Review of Systems Review of Systems All systems reviewed & are unremarkable except as noted in HPI and below PFSH Medical History COPD (chronic obstructive pulmonary disease) Diabetes Hypertension Obesity Varicose veins of both legs with edema Surgical History Biopsy of breast (~2003) Cholecystectomy (~2005) EGD - MAC (~2005) Extraction of cataract HERNIA REPAIR (~2006) Nephrectomy (~2005) Family History Mother Alcohol abuse Father Diabetes Sister Diabetes Brother Diabetes Brother Heart disease Son No problems noted. Daughter No problems noted. Social History Smoking and Tabacco status: Current-Occasional Exam Narrative Exam Narrative: 1.Const: Well-nourished, Well-developed, appearing stated age 2.Eyes: PERRL, no conjunctival injection, and symmetrical lids. 3.ENT: Atraumatic external nose and ears. Moist MM. Neck: Symmetric, trachea midline, No thyromegaly. 4.CVS: +S1/S2, No murmurs or gallops. Peripheral pulses 2+ and equal in all extremities. Brisk capillary refill in all extremities. 5.RESP: Unlabored respiratory effort. Clear to auscultation bilaterally. No wheezes rales or rhonchi 6.GI: Soft, Nontender/Nondistended, No hepatosplenomegaly. No guarding or rebound. No pain at McBurney's point, negative Fowler sign, negative obturator and psoas sign. No significant CVA tenderness on percussion. 7.MSK: Normocephalic/Atraumatic, Extremities w/o deformity or ttp No cyanosis or clubbing, Normal movement of all extremities. Normal movement of the hip, with external and internal rotation. Normal flexion and extension. There is mild tenderness on palpation of the left SI joint. No midline spinal tenderness. No midline tenderness to palpation over the CTLS spine. Normal ROM in flexion, extension, side bend, and rotation. Patient has +5 out of 5 strength in the lower extremities in dorsiflexion and plantarflexion, knee flexion and extension, hip flexion and extension. There is +2 over 2 dorsalis pedis pulses bilaterally. There is normal sensation to the skin with light touch at the foot, knee, and hip. Normal saddle sensation. Good sensation over the deep sural nerve area bilaterally. Rectal exam deferred. Reflexes are +2 over 4 in the patellar reflex bilaterally. +5 out of 5 strength in the medial, ulnar, radial nerve distribution bilaterally in the hands as well as intact light touch sensation to these dermatomes on the hands. Patient ambulates well without any difficulty or limp. 8.Skin: Warm, Dry. No rashes or lesions. 9.Neuro: juice tester II-XII grossly intact. Sensation grossly intact, no focal neurologic deficits. 10.Psych: (AAO) x3. Appropriate mood and affect Course Vital Signs Temperature 36.3 C L 10/25/18 09:40 Pulse 91 H 10/25/18 09:40 Respiratory Rate 18 10/25/18 09:40 Blood Pressure 141/66 H 10/25/18 09:40 Pulse Oximetry 100 10/25/18 09:40 Temperature 36.3 C L 10/25/18 09:40 Temperature Source Skin 10/25/18 09:40 Pulse 91 H 10/25/18 09:40 Respiratory Rate 18 10/25/18 09:40 Respiratory Effort 10/25/18 09:55 Blood Pressure 141/66 H 10/25/18 09:40 Blood Pressure Position Sitting 10/25/18 09:40 Pulse Oximetry 100 10/25/18 09:40 Oxygen Delivery Method Room Air 10/25/18 09:40 Oxygen Flow Rate 0 10/25/18 09:40 Pain Level 8 10/25/18 09:49 Lab/Test Results Lab/Test Results: Laboratory Tests Range/Units 10/25/18 09:50 Urine Color (Yellow) Yellow Urine Clarity Cloudy Urine pH (5-8) 5.5 Ur Specific Williams (1.005-1.025) >= 1.030 H Urine Protein (Negative) mg/dL 30 H Urine Ketones (Negative) mg/dL 15 H Urine Blood (Negative) Negative Urine Nitrite (Negative) Positive H Urine Bilirubin (Negative) Moderate H Urine Urobilinogen (Up TO 0.2) EU/dL 1.0 H Ur Leukocyte Esterase (Negative) Moderate H Urine Glucose (Negative) mg/dL Negative
[2018-10-25 10:11] LABS: WBC >50 HPF (0-5)
[2018-10-25 10:12] LABS: Bacteria Many HPF (Negative); C & S Indicated? No/Sq. Contamination; Epithelial Cells Many HPF (Negative)
[2018-10-25] MEDS: Cephalexin 500 MG CAP PO (10:21)
[2018-10-25 10:56] VITALS: BP 116/70; PULSE 77; RESP 14; TEMP 36.8; O2SAT 98
== END 2018-10-25 10:55 | disposition home or self-care (01) ==
LOC: ER 10:18
PROVIDERS: Emergency Provider Student in an Organized Health Care Education/Training Program; PCP Family Medicine
DX: N39.0 Urinary tract infection, site not specified (principal); J44.9 Chronic obstructive pulmonary disease, unspecified; E11.9 Type 2 diabetes mellitus without complications; Z90.5 Acquired absence of kidney; I10 Essential (primary) hypertension
CPT/HCPCS: 99283; 81003; 81015

== ENCOUNTER 2018-10-29 08:12 | Outpatient (CLI) | payer OTHER, SELFPAY ==
[2018-10-29 13:31] LABS: Cholesterol 130 mg/dL (50-200); HDL Cholesterol 47 mg/dL (40-60); LDL CHOLESTEROL 58 mg/dL (<100); TSH (W/Ref FT4) 0.27 uIU/mL (0.358-3.74); Triglyceride 118 mg/dL (30-150)
[2018-10-29 14:01] LABS: FREE T4 1.52 ng/dL (0.76-1.46)
== END 2018-10-29 08:32 ==
PROVIDERS: PCP Family Medicine; Visit Provider Family Medicine
DX: E03.9 Hypothyroidism, unspecified (principal); E78.5 Hyperlipidemia, unspecified
CPT/HCPCS: 36415; 80061; 83721; 84439; 84443

== ENCOUNTER 2019-01-21 15:45 | Outpatient (CLI) | payer OTHER, SELFPAY ==
[2019-01-21 16:10] LABS: Bilirubin Small (Negative); Blood Negative (Negative); Clarity Clear; Glucose Negative (Negative); Ketones Trace mg/dL (Negative); Leukocyte Esterase Trace (Negative); Nitrite Negative (Negative); Specific Gravity 1.025 (1.005-1.025); Urobilinogen 0.2 EU/dL (Up TO 0.2); pH 5.5 (5-8)
[2019-01-21 16:20] LABS: Bacteria Many HPF (Negative); C & S Indicated? No/Sq. Contamination; Casts Negative LPF (Negative); Crystals Negative HPF (Negative); Epithelial Cells Many HPF (Negative); Mucus Trace (Negative)
== END 2019-01-21 16:05 ==
PROVIDERS: PCP Family Medicine; Visit Provider Urology
DX: R30.0 Dysuria (principal)
CPT/HCPCS: 81003; 81015

== ENCOUNTER 2019-06-30 15:41 | Emergency (ER) | payer OTHER, SELFPAY ==
[2019-06-30 15:49] VITALS: BP 122/61; PULSE 93; RESP 16; TEMP 36.6; O2SAT 97
--- NOTE | 2019-06-30 16:37 | DI.RAD_ITS ---
EXAM: XR CHEST 2V PA LATERAL INDICATION: cough, smoker. COMPARISON: No exams were available for comparison TECHNIQUE: 2D digital imaging was performed. FINDINGS: The heart size is normal. The lungs are clear. There are mildly increased interstitial changes. IMPRESSION: No acute abnormality.
--- NOTE | 2019-06-30 16:38 | W.ED.GENAD ---
Discharge Plan Disposition Patient Disposition: HOME Condition: Improving Discharge Details Chief Complaint: RespSymp Clinical Impression: Walking pneumonia Primary Care Provider: Mary Florez ED Provider: [place] Home Meds and New Rx's Prescriptions: New levofloxacin [Levaquin] 500 mg tablet 500 mg PO DAILY Qty: 9 RF: 0 Continued cyanocobalamin (vitamin B-12) [Vitamin B-12] 1,000 MCG tablet 1,000 mcg PO DAILY Qty: 100 RF: 4 estradiol [Estrace] 42.5 GM cream 1 gm VG 3x/week Qty: 42.5 RF: 2 fluocinonide 60 ML solution 1 ml Topical BID PRNQty: 60 RF: 2 triamcinolone acetonide 15 GM ointment 1 applic Topical BID prn Qty: 60 RF: 5 metformin [Glucophage] 1,000 MG tablet 1,000 mg PO BID Qty: 180 RF: 4 amitriptyline 10 MG tablet 1 tab PO HS Qty: 90 RF: 3 levothyroxine 150 MCG tablet 150 mcg PO DAILY Qty: 30 RF: 11 (DME) pen needle, diabetic 1 EACH needle 1 ea Miscellaneous weekly Qty: 25 RF: 2 (DME) pen needle, diabetic 1 EACH needle 1 ea Miscellaneous DAILY Qty: 100 RF: 5 simvastatin 40 MG tablet 40 mg PO HS Qty: 90 RF: 4 citalopram [Celexa] 20 MG tablet 20 mg PO DAILY Qty: 90 RF: 4 Basaglar KwikPen U-100 Insulin 100 UNIT/1 ML insulin pen 25 unit SQ HS Qty: 10 RF: 5 Bydureon 2 MG/0.65 ML pen injector 2 mg SQ weekly Qty: 1 RF: 11 omeprazole 40 MG capsule,delayed release(DR/EC) 40 mg PO DAILY PRNQty: 90 RF: 3 gabapentin 300 MG capsule 300 - 600 mg PO BID Qty: 90 RF: 5 Bydureon BCise 2 mg/0.85 mL Auto-Injector 2 mg SUBCUT DIRECTED RF: 0 meclizine [Antivert] 12.5 MG tablet 12.5 mg PO BID PRN (Reason: Dizziness) Qty: 12 RF: 0 hydrocortisone 30 GM cream 30 gm Topical BID Qty: 1 RF: 0 Discharge Instructions Additional Instructions: Take antibiotics as prescribed. Follow-up with Dr. Florez for recheck if not improving in 3 to 5 days time. May use the provided inhaler if needed every 4 hours. Return if you feel you need to use more frequently. Follow-up with Dr. Florez if you develop joint or muscle pain while on antibiotics. Home to rest tonight. Small, frequent sips of fluids to maintain hydration. Medical Decision Making 63-year-old female smoker presents with 4 to 5 days of dry cough. She had some mild malaise associated with it. She denied to me fever, vomiting, change to bowel or bladder habits. She has had the use of an inhaler in the past, but not currently. With a cough that she has had some mild shortness of breath. She has had a recent flu shot. Vital signs are unremarkable, note of pulse at triage of 93, normal oxygenation. Her lungs are essentially clear on exam. Referred for chest x-ray which reveals perihilar infiltrates with retrocardiac infiltrate and note of 1 cm nodule density in the right mid lung field, the latter which will require follow-up. Patient improved with inhaled albuterol. Presentation is consistent with walking pneumonia. Discussed treatment options given her allergy profile and will treat with Levaquin. Discussed with her possible side effects. She may continue inhaler at home. She will follow-up with Dr. Florez for recheck. [facility] General Mode of arrival: ambulatory. Date/Time Provider Initiated Documentation: 06/30/19 15:47. Limitations to Documentation: no limitations. Information obtained by: patient. History of Present Illness 63 year old F presents to the emergency department with the chief complaint of Cough and shortness of breath over days time, described as moderate, and is localized to the chest. Patient reports no radiation. Patient started experiencing this day(s) and it has been intermittent. No relieving factors improve symptom(s), No exacerbating factors reported . Patient notes cough; denies chest pain, fever/chills, loss of appetite and nausea/vomiting. Patient did receive the following treatments prior to arrival, none Related Data Home Medications Medication Instructions Recorded Confirmed cyanocobalamin (vitamin B-12) 1,000 mcg PO DAILY #100 tab-cap 09/18/13 06/30/19 [Vitamin B-12] estradiol [Estrace] 1 gm VG 3x/week #42.5 gm 04/28/16 06/30/19 fluocinonide 1 ml TOPICAL BID PRN #60 script 08/23/16 06/30/19 triamcinolone acetonide 1 applic TOPICAL BID prn #60 gm 10/11/16 06/30/19 metformin [Glucophage] 1,000 mg PO BID #180 tab-cap 02/16/17 06/30/19 amitriptyline 1 tab PO HS #90 tab 05/02/17 06/30/19 levothyroxine 150 mcg PO DAILY #30 tab-cap 05/18/17 06/30/19 pen needle, diabetic #25 ndl 05/18/17 07/01/18 pen needle, diabetic #100 ndl 07/19/17 07/01/18 meclizine [Antivert] 12.5 mg PO BID PRN #12 tab 08/10/17 07/01/18 citalopram [Celexa] 20 mg PO DAILY #90 tab-cap 08/28/17 06/30/19 simvastatin 40 mg PO HS #90 tab-cap 08/28/17 06/30/19 Basaglar KwikPen U-100 Insulin 25 unit SQ HS #10 pen 10/08/17 06/30/19 Bydureon 2 mg SQ weekly #1 pen 12/11/17 06/30/19 omeprazole 40 mg PO DAILY PRN #90 tab-cap 01/01/18 06/30/19 gabapentin 300 - 600 mg PO BID #90 tab-cap 01/14/18 06/30/19 hydrocortisone 30 gm TOPICAL BID #1 tube 04/14/18 06/30/19 Bydureon BCise 2 mg SUBCUT DIRECTED 06/30/19 06/30/19 levofloxacin [Levaquin] 500 mg PO DAILY #9 tab 06/30/19 Previous Rx's Medication Instructions Recorded pen needle, diabetic #100 ndl 07/19/17 meclizine [Antivert] 12.5 mg PO BID PRN #12 tab 08/10/17 citalopram [Celexa] 20 mg PO DAILY #90 tab-cap 08/28/17 simvastatin 40 mg PO HS #90 tab-cap 08/28/17 Basaglar KwikPen U-100 Insulin 25 unit SQ HS #10 pen 10/08/17 Bydureon 2 mg SQ weekly #1 pen 12/11/17 gabapentin 300 - 600 mg PO BID #90 tab-cap 01/14/18 hydrocortisone 30 gm TOPICAL BID #1 tube 04/14/18 levofloxacin [Levaquin] 500 mg PO DAILY #9 tab 06/30/19 Allergies Allergy/AdvReac Type Severity Reaction Status Date / Time amoxicillin Allergy Intermediate Hives Verified 06/30/19 15:52 bupropion Allergy Intermediate Skin Rash Verified 06/30/19 15:52 ibuprofen Allergy Intermediate Skin Rash Verified 06/30/19 15:52 hydrochlorothiazide AdvReac Mild DIZZY/DEHYD Verified 06/30/19 15:52 [From Hyzaar] RATED lisinopril AdvReac Mild COUGH Verified 06/30/19 15:52 losartan potassium AdvReac Mild DIZZY/DEHYD Verified 06/30/19 15:52 [From Hyzaar] RATED sulfamethoxazole AdvReac Mild GI UPSE Verified 06/30/19 15:52 [From Bactrim] trimethoprim [From Bactrim] AdvReac Mild GI UPSE Verified 06/30/19 15:52 varenicline AdvReac Mild VOMITING Verified 06/30/19 15:52 atorvastatin [From Lipitor] AdvReac Other (See Verified 06/30/19 15:52 Comment) General Stated Complaint: RespSymp KARLO: 4 Review of Systems Review of Systems Narrative: 6 systems reviewed and otherwise negative [facility] Medical History COPD (chronic obstructive pulmonary disease) Diabetes Hypertension Obesity Varicose veins of both legs with edema Surgical History (Updated 06/26/18 @ 14:35 by [place]) Biopsy of breast (~2003) RIGHT Cholecystectomy (~2005) EGD - MAC (~2005) NEG Extraction of cataract RIGHT HERNIA REPAIR (~2006) ABDOMINAL Nephrectomy (~2005) RIGHT Family History Mother Alcohol abuse Father Diabetes Sister Diabetes Brother Diabetes Brother Heart disease Son No problems noted. Daughter No problems noted. Social History Smoking/Tobacco Use Status: Current every day Alcohol Intake: never Drug use: Never Substance use type: does not use Do you feel safe at home: Yes Do you feel safe in your relationship?: Yes Exam Narrative Exam Narrative: GEN: awake, alert, oriented 3. Pleasant, well groomed, interactive. HEAD: Normocephalic, atraumatic ENT: Mucous membranes moist, oropharynx unremarkable, upper denture plate, External ear exam unremarkable EYES: PERRL, EOMI NECK: Full ROM, no THALIA, no menigismus CHEST/RESP: Cough noted nontender, clear to auscultation bilateral, no wheeze/rhonchi/rales CARDIOVASCULAR: RRR, no murmur, rub delicia. 2+ Rad pulse bilateral ABDOMEN: Soft, nontender, no mass. +Bowel sounds EXT: Full ROM, no edema, no rash Neuro: Grossly normal neurologic exam, conversant, interactive. Psych: Speech fluent, thoughts congruent, affect normal Course Vital Signs Vital signs: Vital Signs Temperature 36.6 C 06/30/19 15:49 Pulse 93 H 06/30/19 15:49 Respiratory Rate 16 06/30/19 15:49 Blood Pressure 122/61 06/30/19 15:49 Pulse Oximetry 97 06/30/19 15:49 Temperature 36.6 C 06/30/19 15:49 Temperature Source Temporal Artery Scan 06/30/19 15:49 Pulse 93 H 06/30/19 15:49 Respiratory Rate 16 06/30/19 15:49 Respiratory Effort Non-Labored 06/30/19 16:33 Respiratory Depth Normal 06/30/19 16:33 Blood Pressure 122/61 06/30/19 15:49 Pulse Oximetry 97 06/30/19 15:49 Oxygen Delivery Method Room Air 06/30/19 15:49 Oxygen Flow Rate 0 06/30/19 15:49 Pain Level 8 06/30/19 15:49
[2019-06-30] MEDS: Albuterol HFA 8 GM 60 PUFF INH IH (16:46)
--- NOTE | 2019-06-30 17:55 | DI.VRAD_ITS ---
PROCEDURE INFORMATION: Exam: XR Chest, 2 Views Exam date and time: 06/30/2019 5:38 PM Clinical history: 63 years old, female; Other: Cough, smoker TECHNIQUE: Imaging protocol: XR of the chest Views: 2 views. COMPARISON: CR CHEST 2 VIEWS PA,LAT 11/20/2015 12:21 PM FINDINGS: Lungs: Perihilar infiltrates. Retrocardiac infiltrate. 1 cm nodular density in the right midlung field. Pleural space: Unremarkable. No pleural effusion. No pneumothorax. Heart/Mediastinum: Unremarkable. No cardiomegaly. Bones/joints: Unremarkable. IMPRESSION: 1. Perihilar infiltrates. 2. 1 cm nodular density in the right midlung field. 3. Retrocardiac infiltrate. Dictated and Authenticated by: Tania Carter MD. Ordering:JANIE Machado MD
[2019-06-30] MEDS: levoFLOXacin 500 MG TAB PO (18:06)
[2019-06-30 18:10] VITALS: BP 122/61; PULSE 93; RESP 16; TEMP 36.6; O2SAT 97
== END 2019-06-30 18:09 | disposition home or self-care (01) ==
PROVIDERS: Emergency Provider Emergency Medicine; PCP Family Medicine
DX: J18.9 Pneumonia, unspecified organism (principal); R91.1 Solitary pulmonary nodule; J44.9 Chronic obstructive pulmonary disease, unspecified; I10 Essential (primary) hypertension; E11.9 Type 2 diabetes mellitus without complications; Z79.84 Long term (current) use of oral hypoglycemic drugs; F17.210 Nicotine dependence, cigarettes, uncomplicated
CPT/HCPCS: 99283; 71046

== ENCOUNTER 2019-08-02 11:17 | Outpatient (REF) | payer OTHER, SELFPAY ==
[2019-08-04 10:36] LABS: Campylobacter PCR Negative (Negative); Salmonella PCR Negative (Negative); Shiga Toxin PCR Negative (Negative); Shigella/Enteroinvasive Ecoli Negative (Negative)
[2019-08-05 17:51] LABS: Calprotectin <15.6 mcg/g
== END 2019-08-02 11:37 ==
LOC: LBN 11:17
PROVIDERS: PCP Family Medicine; Visit Provider Nurse Practitioner Family
DX: R14.0 Abdominal distension (gaseous) (principal); R11.2 Nausea with vomiting, unspecified
CPT/HCPCS: 87505; 83993

== ENCOUNTER 2019-08-13 13:33 | Outpatient (CLI) | payer OTHER, SELFPAY ==
[2019-08-13 17:08] LABS: TSH (W/Ref FT4) 102.46 uIU/mL (0.36-3.74)
[2019-08-13 21:51] LABS: FREE T4 0.34 ng/dL (0.76-1.46)
== END 2019-08-13 13:53 ==
PROVIDERS: PCP Family Medicine; Visit Provider Family Medicine
DX: E03.9 Hypothyroidism, unspecified (principal)
CPT/HCPCS: 84439; 84443

== ENCOUNTER 2019-09-19 11:05 | Emergency (ER) | payer OTHER, SELFPAY ==
[2019-09-19] MEDS: EPINEPHrine 1 MG/10 ML SYR IVP ×7 (11:04→11:38)
[2019-09-19] MEDS: Sodium Bicarbonate 50 MEQ/50 ML SYR ×4 (11:05→11:32)
[2019-09-19] MEDS: Calcium Chloride 1000 MG/10 ML SYR IVP (11:07)
[2019-09-19 11:10] VITALS: O2SAT 93
--- NOTE | 2019-09-19 11:24 | NUR.NOTE ---
Nursing Note: Family arrives and states pt has had chest pain all week. CPR continues to be in progress.
[2019-09-19 11:30] LABS: Absolute Eosinophil Count 0.09 k/cumm (0.0-0.7); HGB 10.6 g/dL (12.0-15.5); Mean Corp. HGB Concentration 29.4 g/dL (32.0-36.0); Mean Corpuscular Hemoglobin 27.4 pg (27.0-33.0); Platelet Count 119 x1000/uL (130-400); RBC 3.87 m/cumm (4.00-5.20); RBC Distribution Width 15.8 % (11.7-14.6); White Blood Cell Count 8.73 k/cumm (4.4-10.8)
[2019-09-19 11:42] LABS: Lactate 12.6 mmol/L (0.6-1.4)
[2019-09-19 11:45] LABS: INR 1.1 (0.9-1.1); Prothrombin Time 10.8 sec (9.3-11.0)
[2019-09-19 11:49] LABS: ALT 264 U/L (14-59); AST 338 U/L (15-37); Albumin 2.4 g/dL (3.4-5.0); Alkaline Phosphatase 67 U/L (46-116); Anion Gap 17.2 mmol/L (3-11); BUN 21 mg/dL (7-18); Bilirubin, Total 0.1 mg/dL (0.2-1.0); CO2 20.8 mmol/L (21.0-32.0); CREATININE 1.34 mg/dL (0.55-1.02); Calcium 10.5 mg/dL (8.5-10.1); Chloride 109 mmol/L (98-107); Estimated GFR 39.95 (mL/min/1.73m2); Glucose 449 mg/dL (74-106); Magnesium 2.1 mg/dL (1.8-2.4); Potassium 4.9 mmol/L (3.5-5.1); Sodium 147 mmol/L (136-145); Total Protein 5.3 g/dL (6.4-8.2)
[2019-09-19 11:53] LABS: Troponin I 0.35 ng/Ml (<0.06)
--- NOTE | 2019-09-19 12:10 | ED.GENADUL_ITS ---
Discharge Plan Disposition Patient Disposition: Discharge Details Chief Complaint: CodeBlue Clinical Impression: Cardiopulmonary arrest Primary Care Provider: Mary Florez ED Provider: Elif Hernadez Discharge Data Date/Time: 09/19/19 11:52 Discharge Date/Time-TO BE ENTERED AT DEPARTURE: 09/19/19 13:03 Medical Decision Making 1110 --63-year-old female with history of diabetes, hypertension, obesity, COPD arrived as a cardiac arrest from work. EMS states that patient complained to a coworker that she was having difficulty breathing and stating she needed her inhaler. She then went to the bathroom where she was later found down by a coworker. CPR was initiated in the field. Upon EMS arrival to her work, pt was not breathing and had no pulse. She was reported to be in PEA. Patient intubated and CPR continued in the field. Upon arrival to ED, ETT in place and CPR in progress. Rhythm asystole initially on the monitor. She had equal breath sounds with bag mask ventilation. ETCO2 ~30s. Unresponsive. Pupils fixed and dilated. Skin pale with cyanosis around lips and slight mottling around face and neck. CPR continued in the ED. Patient was able to briefly regain a pulse but this was lost within seconds several times. Rhythm alternated between asystole or PEA on the monitor. Multiple rounds of epi, bicarb given in addition to calcium. See code sheet for details. Case discussed with family shortly after pt arrival and they requested we wait for other family members to arrive before stopping cpr. After approximately a total of 75 minutes of continued CPR from in the field and ED, no sustainable pulse, no cardiac wall motion activity on bedside ultrasound, family requested we stop CPR. Time of 1152. We were unable to obtain an EKG due to lack of sustainable pulse. Medical Records Medical records reviewed: Yes I reviewed the patient's medical records. HPI General Mode of arrival: EMS . Date/Time Provider Initiated Documentation: 09/19/19 11:13 . Limitations to Documentation: altered mental status . Information obtained by: EMS . History of Present Illness 63 year old F presents to the emergency department with the chief complaint of cardiac arrest, Patient started experiencing this minute(s) (20 minutes) HPI Narrative: 63-year-old female presents for cardiac arrest from her workplace. EMS states that patient complained to a coworker that she felt short of breath stating she thought it was her asthma and was planning to use her inhaler. It was reported that patient had then gone to the bathroom where she was later found down by a coworker. CPR initiated. Unknown downtime ~possibly 20 minutes. Upon EMS arrival to pt's workplace, she was not breathing and did not have a pulse. She was intubated and CPR continued in the field. Related Data Home Medications Medication Instructions Recorded Confirmed cyanocobalamin (vitamin B-12) 1,000 mcg PO DAILY #100 tab-cap 09/18/13 06/30/19 [Vitamin B-12] estradiol [Estrace] 1 gm VG 3x/week #42.5 gm 04/28/16 06/30/19 fluocinonide 1 ml TOPICAL BID PRN #60 script 08/23/16 06/30/19 triamcinolone acetonide 1 applic TOPICAL BID prn #60 gm 10/11/16 06/30/19 metformin [Glucophage] 1,000 mg PO BID #180 tab-cap 02/16/17 06/30/19 amitriptyline 1 tab PO HS #90 tab 05/02/17 06/30/19 levothyroxine 150 mcg PO DAILY #30 tab-cap 05/18/17 06/30/19 pen needle, diabetic #25 ndl 05/18/17 07/01/18 pen needle, diabetic #100 ndl 07/19/17 07/01/18 meclizine [Antivert] 12.5 mg PO BID PRN #12 tab 08/10/17 07/01/18 citalopram [Celexa] 20 mg PO DAILY #90 tab-cap 08/28/17 06/30/19 simvastatin 40 mg PO HS #90 tab-cap 08/28/17 06/30/19 Basaglar KwikPen U-100 Insulin 25 unit SQ HS #10 pen 10/08/17 06/30/19 Bydureon 2 mg SQ weekly #1 pen 12/11/17 06/30/19 omeprazole 40 mg PO DAILY PRN #90 tab-cap 01/01/18 06/30/19 gabapentin 300 - 600 mg PO BID #90 tab-cap 01/14/18 06/30/19 hydrocortisone 30 gm TOPICAL BID #1 tube 04/14/18 06/30/19 Bydureon BCise 2 mg SUBCUT DIRECTED 06/30/19 06/30/19 levofloxacin [Levaquin] 500 mg PO DAILY #9 tab 06/30/19 Previous Rx's Medication Instructions Recorded pen needle, diabetic #100 ndl 07/19/17 meclizine [Antivert] 12.5 mg PO BID PRN #12 tab 08/10/17 citalopram [Celexa] 20 mg PO DAILY #90 tab-cap 08/28/17 simvastatin 40 mg PO HS #90 tab-cap 08/28/17 Basaglar KwikPen U-100 Insulin 25 unit SQ HS #10 pen 10/08/17 Bydureon 2 mg SQ weekly #1 pen 12/11/17 gabapentin 300 - 600 mg PO BID #90 tab-cap 01/14/18 hydrocortisone 30 gm TOPICAL BID #1 tube 04/14/18 levofloxacin [Levaquin] 500 mg PO DAILY #9 tab 06/30/19 Allergies Allergy/AdvReac Type Severity Reaction Status Date / Time amoxicillin Allergy Intermediate Hives Verified 06/30/19 15:52 bupropion Allergy Intermediate Skin Rash Verified 06/30/19 15:52 ibuprofen Allergy Intermediate Skin Rash Verified 06/30/19 15:52 hydrochlorothiazide AdvReac Mild DIZZY/DEHYD Verified 06/30/19 15:52 [From Hyzaar] RATED lisinopril AdvReac Mild COUGH Verified 06/30/19 15:52 losartan potassium AdvReac Mild DIZZY/DEHYD Verified 06/30/19 15:52 [From Hyzaar] RATED sulfamethoxazole AdvReac Mild GI UPSE Verified 06/30/19 15:52 [From Bactrim] trimethoprim [From Bactrim] AdvReac Mild GI UPSE Verified 06/30/19 15:52 varenicline AdvReac Mild VOMITING Verified 06/30/19 15:52 atorvastatin [From Lipitor] AdvReac Other (See Verified 06/30/19 15:52 Comment) General Stated Complaint: CodeBlue KARLO: 1 Review of Systems Unobtainable due to mental status [facility] Surgical History (Updated 06/26/18 @ 14:35 by [employer] [place]) Biopsy of breast (~2003) RIGHT Cholecystectomy (~2005) EGD - MAC (~2005) NEG Extraction of cataract RIGHT HERNIA REPAIR (~2006) ABDOMINAL Nephrectomy (~2005) RIGHT Social History Smoking/Tobacco Use Status: Current every day Alcohol Intake: never Drug use: Never Substance use type: does not use Details: CPR in progress, unable to obtain information Do you feel safe at home: Yes Do you feel safe in your relationship?: Yes Exam Const General: patient mechanically ventilated Nutritional Appearance: obese centrally obese Orientation: other (Unresponsive) Eyes Pupils: dilated bilaterally and fixed bilaterally Neck Neck: normal visual inspection Resp Other: Intubated, equal breath sounds with bag mask ventilation Cardio Other: Asystole. GI Inspection: obesity (Central) Palpation: soft Skin General skin exam: mottling (Face and upper body), pallor and other (Cyanosis of lips) Neuro General: other (Unresponsive) Extrem General: other (Extremities pale) Course Vital Signs Vital signs: Vital Signs Pulse Oximetry 93 L 09/19/19 11:10 Respiratory Effort 09/19/19 11:23 Pulse Oximetry 93 L 09/19/19 11:10 Oxygen Delivery Method Ambu-Bag 09/19/19 11:10 End Tidal Co2 09/19/19 11:10 Lab/Test Results Lab/Test Results: Laboratory Tests Range/Units 09/19/19 09/19/19 09/19/19 11:16 11:16 11:16 PT (9.3-11.0) sec 10.8 INR (0.9-1.1) 1.1 APTT (21.0-31.4) sec 40.0 H Sodium (136-145) mmol/L 147 H Potassium (3.5-5.1) mmol/L 4.9 Chloride (98-107) mmol/L 109 H Carbon Dioxide (21.0-32.0) mmol/L 20.8 L Anion Gap (3-11) mmol/L 17.2 H BUN (7-18) mg/dL 21 H Creatinine (0.55-1.02) mg/dL 1.34 H Estimated GFR/1.73 m2 (mL/min/1.73m2) 39.95 Glucose (74-106) mg/dL 449 H Lactate (0.6-1.4) mmol/L 12.6 H* Calcium (8.5-10.1) mg/dL 10.5 H Magnesium (1.8-2.4) mg/dL 2.1 Total Bilirubin (0.2-1.0) mg/dL 0.1 L AST (15-37) U/L 338 H ALT (14-59) U/L 264 H Alkaline Phosphatase (46-116) U/L 67 Troponin I (<0.06) ng/Ml 0.35 H* Total Protein (6.4-8.2) g/dL 5.3 L Albumin (3.4-5.0) g/dL 2.4 L
[2019-09-19 12:22] LABS: Absolute Lymphocyte Count 5.67 k/cumm (1.2-3.4); Absolute Monocyte Count 0.26 k/cumm (0.11-0.7); Absolute Neutrophil Count 2.44 k/cumm (1.2-6.7)
[2019-09-19 12:23] LABS: Diff Comment Manual Differential
[2019-09-19 12:25] LABS: Anisocytosis 1+; Poikilocytes 1+
--- NOTE | 2019-09-19 13:34 | NUR.NOTE ---
Nursing Note: Pt arrives to room 2 via [facility] w/CPR in progress. pt had been inbubated with ETT NURSING CLERK and arrives @ 23 @ the lip, 3 amps of epinephrine and 1 amp bicarb given in the field. PEA on the monitor. Pt was given the following medications via verbal order from Dr. Hernadez, all through the 18g IV in left AC- 11:04- Epinephrine 1mg IVP 11:05- Sodium Bicarbonate 50mEQ IVP 11:07- 10% calcium chloride 14mEQ IVP 11:09- Epinephrine 1mg IVP 11:13- PEA, no pulse, compressions continued 11:13- Sodium Bicarbonate 50mEq IVP 11:14- Epinephrine 1mg IVP 11:17- Epinephrine 1mg IVP 11:17- Ultrasound @ bedside by Dr. Hernadez shows no cardiac movement, compressions resumed. 11:21- Faint radial and femoral pulse noted for approx. 3 seconds and then lost again, compressions resumed. 11:25- Sodium Bicarbonate 50mEq IVP 11:28- Epinephrine 1mg IVP 11:30- Epinephrine 1mg IVP 11:32- Sodium Bicarbonate 50mEq IVP 11:38- Epinephrine 1mg IVP 11:45- No pulse, asystole on monitor, family at bedside. 11:52- No Pulse, assystole on monitor requests all efforts be stopped. Pt pronounced by . 12:05- [place] [facility] notified of . Post mortem care performed with in room. Earrings and ring removed per husbands request and given to in specimen cup. All other belongings were placed in patient belonging bag and given to - no belongings were left behind in room. Pt was brought to [facility] at 13:03 by Developmental Psychologist to be placed in family viewing room to accommodate large amount of family who arrived and family who is traveling to facility.
== END 2019-09-19 13:03 | disposition expired ==
PROVIDERS: Emergency Provider Physician Assistant; PCP Family Medicine
DX: I46.9 Cardiac arrest, cause unspecified (principal); E11.9 Type 2 diabetes mellitus without complications; Z79.4 Long term (current) use of insulin; J44.9 Chronic obstructive pulmonary disease, unspecified; F17.210 Nicotine dependence, cigarettes, uncomplicated; I10 Essential (primary) hypertension
CPT/HCPCS: 36415; 80053; 82805; 92950; 96374; 96375; 96376; 99285; 83605; 83735; 84484; 85025; 85610; 85730